=== PATIENT | male | born 1960 | race Caucasian/White ===

== ENCOUNTER 2016-07-05 07:26 | Inpatient (IN) | payer BC ==
[2016-06-26 16:40] LABS: % IMMATURE GRANULYOCYTES 0.4 % (0.0-1.1); ABSOLUTE IMMATURE GRANULOCYTES 0.03 10^3/uL (0.00-0.10); ADD DIFF? NO; ADD MORPH? NO; ADD SCAN? NO; ATYPICAL LYMPHOCYTE FLAG 10 (0-99); FRAGMENT RBC FLAG 0 (0-99); HEMATOCRIT 43.4 % (40.0-51.0); HEMOGLOBIN 15.3 g/dL (13.7-17.5); LEFT SHIFT FLG 0 (0-99); LIPEMIA HEMOLYSIS FLAG 90 (0-99); MEAN CELL HEMOGLOBIN 36.3 pg (27.9-34.1); MEAN CELL HEMOGLOBIN CONCENTR. 35.3 g/dL (32.4-36.7); MEAN CELL VOLUME 103.1 fL (81.5-99.8); MEAN PLATELET VOLUME 9.9 fL (8.7-11.7); PLATELET CLUMPS FLAG 10 (0-99); PLATELET COUNT 125 10^3/uL (150-400); RED BLOOD CELL COUNT 4.21 10^6/uL (4.40-6.38); RED CELL DISTRIBUTION WIDTH 12.3 % (11.5-15.2)
[2016-06-26 17:06] LABS: ANION GAP 9 mEq/L (8-16); CALCIUM 9.5 mg/dL (8.5-10.4); CARBON DIOXIDE 24 mEq/l (22-31); CHLORIDE 106 mEq/L (97-110); CREATININE 0.7 mg/dL (0.7-1.3); GLOMERULAR FILTRATION RATE > 60; GLUCOSE 129 mg/dL (70-100); POTASSIUM 3.9 mEq/L (3.5-5.2); SODIUM 139 mEq/L (134-144)
--- NOTE | 2016-06-26 17:11 | GHP ---
[f rep st] PREOP HISTORY AND PHYSICAL DATE OF ADMISSION: 07/05/2016 PROBLEM: Severe left knee degenerative arthritis with varus deformity. HISTORY OF PRESENT ILLNESS: The patient is a 55-year-old male who will be admitted for a left total knee arthroplasty with Dr. Blum at the [facility] on Tuesday July 05, 2016. 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 Over the past 8 years, the pain has progressively gotten worse. He has tried a cortisone injection into the left knee without any significant improvement. He uses an coal unloader brace on a daily basis in addition to using Advil twice a day. No previous surgery on his left knee. His activities have become extremely limited and finds it difficult to walk and hike because of his pain. Because of the progressive pain and his advanced arthritis of the left knee, he has elected to proceed with a left total knee arthroplasty. PAST MEDICAL HISTORY: Pertinent for type 2 diabetes, hypertension, and arthritis. No history of MRSA infections, PE, DVT, CAD, or metal allergies. CURRENT MEDICATIONS: Lisinopril 10 mg daily and metformin 1000 mg twice a day and tart gaines extract daily. MEDICATION ALLERGIES: No known drug allergies. SOCIAL HISTORY: The patient is . He currently smokes 3-5 cigarettes a day. Occasional alcohol. 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 His activities include hiking and walking. FAMILY HISTORY: Pertinent for type 2 diabetes. PHYSICAL EXAMINATION: GENERAL: He is an otherwise healthy-appearing 55-year- old male. VITALS: Height 6 feet 1 inch tall, weight 230 pounds. BMI 30.3. Blood pressure 148/80, pulse 78. HEENT: Head is normocephalic, atraumatic. Eyes are PERRLA. Conjunctivae and sclerae are clear. Mouth: He has good oral hygiene without any loose teeth. LUNGS: Clear. HEART: Regular rate and rhythm without murmurs, gallops, or rubs. EXTREMITIES: Pertinent findings are limited to the patient's left knee. He has a 5 degree flexion contracture with 120 degrees of flexion. There is a moderate knee joint effusion and varus alignment. There is pseudolaxity noted of his MCL. RECENT DIAGNOSTIC IMAGING: Recent x-rays taken of the patient's left knee shows [id number] arthritis of the medial compartment with varus deformity. There is erosion of the bone of the medial femoral condyle and medial tibial plateau. He has mild degenerative changes of the lateral compartment. There is also a calcification in the soft tissues of the medial aspect of the left proximal leg. IMPRESSION: On admission: 1. Severe left knee advanced medial compartment degenerative arthritis with varus deformity. 2. Treated hypertension. 3. Treated type 2 diabetes. PLAN: The plan will be for the patient to undergo a left total knee arthroplasty with Dr. Blum at the [facility] on Tuesday July 05, 2016. The surgery has been described to the patient including the risks, benefits, and expectations. He understands the risk of nerve injury or blood vessel injury, persistent stiffness of the knee or need for future revision surgery given his young age. All his questions have been answered and he consents to surgery here in the office today. /[id number]/MODL MTDD
[~2016-07-05 07:26] MED LIST: ACETAMINOPHEN 325 MG TAB PO ONE; CEFAZOLIN 2 GM/DEXTR 100 ML IV ONE; CHLORHEXIDINE GLUC HIBICLENS 118 ML BTL TP ONE; DEXAMETHASONE 4 MG/ML VIAL IVP ONE; FAMOTIDINE 20 MG TAB PO ONE; ROPI/epiNEPH/KETOROLAC JOINT COCKTAIL IU ONE; TRANEXAMIC ACID 1,000 MG in NS 100 ML IV ONE
[2016-07-05] MEDS ORDERED: VANCOMYCIN 1 GM VIAL IV ONE ×2 (08:12)
[2016-07-05] MEDS ORDERED: ceFAZolin 1 GM/5 ML SYR ONE (08:13)
[2016-07-05] MEDS ORDERED: fentaNYL 100 MCG/2 ML INJ ONE ×2 (08:15→11:13)
[2016-07-05] MEDS ORDERED: PROPOFOL/EMULSION 500 MG/50 ML BOTTLE IV ONE (08:16)
[2016-07-05] MEDS ORDERED: MIDAZOLAM 2 MG/2 ML VIAL ONE ×2 (08:43→09:27)
[2016-07-05] MEDS ORDERED: LIDOCAINE 1% 5 ML SDV ID PRN (08:50)
[2016-07-05] MEDS ORDERED: LR 1,000 ML IV ONE (08:50)
[2016-07-05] MEDS ORDERED: POVIDONE-IODINE 20 ML in SODIUM CL IRRIG SOLUTION 500 ML IRR ONE (09:00)
[2016-07-05] MEDS ORDERED: ROPIVACAINE HCL 150 MG/30 ML INJ ONE (11:15)
[2016-07-05] MEDS ORDERED: NS 500 ML IV PRN (11:41)
[2016-07-05] MEDS ORDERED: traMADol 50 MG TAB PO PRN (11:41)
[2016-07-05] MEDS ORDERED: TEMAZEPAM 15 MG CAP PO PRN (11:41)
[2016-07-05] MEDS ORDERED: PHARMACY PAIN CONSULT 1 EA MISC PRN (11:41)
[2016-07-05] MEDS ORDERED: LACTULOSE 20 GM/30 ML UDCUP PO PRN (11:41)
[2016-07-05] MEDS ORDERED: KETOROLAC 30 MG/1 ML SDV IVP PRN (11:41)
[2016-07-05] MEDS ORDERED: ONDANSETRON DISINTEGRATING 4 MG TAB PO PRN (11:41)
[2016-07-05] MEDS ORDERED: DIPHENOXYLATE/ATROPINE LOMOTIL 1 TAB PO PRN (11:41)
[2016-07-05] MEDS ORDERED: BISACODYL 10 MG SUPP PR PRN (11:41)
[2016-07-05] MEDS ORDERED: diphenhydrAMINE 25 MG CAP PO PRN (11:41)
[2016-07-05] MEDS ORDERED: CYCLOBENZAPRINE 10 MG TAB PO PRN (11:41)
[2016-07-05] MEDS ORDERED: MAGNESIUM HYDROXIDE 30 ML UDCUP PO PRN (11:41)
[2016-07-05] MEDS ORDERED: PROMETHAZINE HCL 25 MG SUPPR PR PRN (11:41)
[2016-07-05] MEDS ORDERED: POLYETHYLENE GLYCOL 3350 17 GM PKT PO PRN (11:41)
[2016-07-05] MEDS ORDERED: ONDANSETRON 4 MG/2 ML VIAL IVP PRN (11:41)
[2016-07-05] MEDS ORDERED: METOCLOPRAMIDE 10 MG/2 ML VIAL IVP PRN (11:41)
--- NOTE | 2016-07-05 11:41 | POSTOPPROG ---
Post Op Note Date of Operation: 07/05/16 Surgeon: Asif Blum [facility] Lpn: Brodie Anesthesiologist: Kane Anesthesia: IV Sedation, Spinal Post-op Diagnosis: R knee arthritis Procedure: R TKA Inf/Abcess present in the surg proc area at time of surgery?: No EBL: 100-500 (adductor canal block)
[2016-07-05] MEDS ORDERED: ONDANSETRON 4 MG/2 ML VIAL ONE (12:13)
[2016-07-05] MEDS: LR 1,000 ML IV SCH ×2 (12:51→21:05)
[2016-07-05] MEDS: ACETAMINOPHEN 325 MG TAB PO SCH ×3 (12:54→23:46)
--- NOTE | 2016-07-05 12:57 | GOP ---
[f rep st] OPERATIVE REPORT DATE OF OPERATION: 07/05/2016 SURGEON: Asif Blum MD [employer] WORKER: Rai Chase CFA, and Mariola White RN. ANESTHESIA: Combination of Marcaine spinal, IV sedation, and adductor canal block. PREOPERATIVE DIAGNOSIS: Left knee severe degenerative arthritis. POSTOPERATIVE DIAGNOSIS: Left knee severe degenerative arthritis. PROCEDURE PERFORMED: Left total knee arthroplasty, cemented, Batres and Nephew Journey II, posterior stabilized, subvastus approach. FINDINGS: DESCRIPTION OF PROCEDURE: The patient was given 2 g of preoperative IV Ancef within 60 minutes of s urgery. He also received IV tranexamic acid at a dose of 10 mg/kg. He was placed on the operating room table and given spinal anesthesia with Marcaine by Dr. Middleton. He was then placed supine and given IV sedation. A Padron catheter was not used. He wore a ART stocking and SCD on the nonoperati ve leg. His left lower extremity was prepped with ChloraPrep from the upper thigh tourniquet to the tips of the toes. It was draped free using sterile sheets, stockinette, and Ioban plastic adhesive drapes. His left lower leg was wrapped with compressive Coban. The leg was exsanguinated with pippa vation and a 6-inch compressive wrap, and the tourniquet was inflated to 275 mmHg. The World Health Organization time-out was performed to verify the correct patient identity and the correct surgical site and side. The [place] time-out was also performed. The PUSH Wellnessayo leg holding device was sterilely attached to the operating room table and used throughout the procedure to help position the knee. A straight midline incision was made centered on the anderson lla. Subcutaneous tissues were sharply divided, and hemostasis was obtained using electrocautery. A medial subcutaneous flap was developed. I used a subvastus approach. I made an oblique incision through the medial capsule beginning at the midpoint of the patella. This was extended proximally a long the posteromedial margin of the vastus medialis, dissecting the vastus medialis off the postero medial intermuscular septum. This allowed me to mobilize the entire vastus medialis and quadriceps mechanism to sublux the patella laterally. I completed the arthrotomy distally in a medial parapate llar fashion. The medial capsule and periosteum were elevated off the rim of medial tibial plateau all the way around to the posteromedial corner. Because of his severe varus preoperative alignment, I made an aggressive release of his medial collateral ligament. In order to improve exposure, his patella was prepared first. The original thickness of the patella was measured. Peripheral osteophytes were removed. I cut a flat surface on the back of the denny leos. He was sized for a 38 mm resurfacing component. I removed enough bone from the patella such alan t the remaining bone plus the thickness of the patellar component recreated the original thickness o f the patella. The composite thickness of his patella was 25 mm. The intramedullary alignment guide system was used to set up the distal femoral cut. The distal fem ur was cut in 5 degrees of valgus. He had a 15-degree preoperative flexion contracture. I made a + 2 mm cut on the distal femur. The sizing jig was used to determine proper femoral sizing. He was a true size 8 without shifting the jig. The 5-in-1 cutting block was applied, and the anterior and p osterior condylar cuts and chamfer cuts were made. The final jig was used to remove the central por tion of the distal femur to accommodate the posterior stabilized femoral component. I was careful t o achieve proper rotation by referencing off Whitesides line. Each cut was checked for accuracy bef ore and after it was made. His femur was sized for a size 8 posterior stabilized component. The tr ial component was tapped securely into place and was a good fit. Next, the tibia was prepared. The proximal tibial cut was made using the extramedullary alignment g uide system. The cut was made in a few degrees of posterior slope. I was careful to achieve proper varus/valgus alignment and proper rotation. The posterior compartment was cleared of meniscal remn ants. Osteophytes were removed from the back of the femoral condyles. I released the posterior cap jose armando. I checked the flexion and extension gaps, and they were equal and balanced and rectangular. The tibia was sized for a size 7 component. With the trial components in place, I selected a 9 mm p olyethylene posterior stabilized tibial insert. The knee came to full extension and flexed to 130 d egrees without any overstuffing in flexion. His collateral ligaments were stable and balanced in 90 degrees of flexion and full extension. The trial patellar button was applied. Patellar tracking w as checked. It was excellent without any digital pressure. 40 mL of the joint anesthetic cocktail were injected into the posterior capsule, the periarticular s tructures, the quadriceps muscle and tendon areas, and the subcutaneous tissues along the skin edges . He received a 2nd dose of IV tranexamic acid at a dose of 10 mg/kg. The surfaces were prepared f or cementing. They were carefully cleaned with the pulsating lavage irrigation and thoroughly dried . The CarboJet device was used to blow dry the cancellous surfaces. A double batch of high viscosi ty cement with 2 g of powdered vancomycin added was mixed. All 3 components were cemented in place. Excess cement was removed before it hardened. The 9 mm trial tibial insert was re-tried and was the proper thickness. The actual component was in serted and locked into place. The knee was thoroughly irrigated one final time with a dilute Betadi ne solution. The tourniquet was deflated. Total tourniquet time was 70 minutes. The medial capsule was closed first with a couple of interrupted [id number] #2 FiberWire suture s. The capsule and synovium were then closed with multiple [id number]-ki-[id number] 0 PDS sutures, followed by a running #2 barbed Ethicon Stratafix Monoderm suture. The skin was closed with a running 3-0 ba rbed Ethicon Stratafix Monoderm suture. The skin edges were sealed with 1/2-inch Steri-Strips. The wound was covered with Xeroform gauze and flat 4 x 4's, and the knee was wrapped with Kerlix and a 6-inch compressive wrap. A long-leg ART stocking and SCD were applied followed by the cooling devi e. He wore a stocking and SCD on the opposite leg during the procedure. I used a size 8 cemented Batres and Nephew Oxinium posterior stabilized femoral component, size 7 lexa ented tibial base plate, 9 mm posterior stabilized tibial insert, and a 38 mm cemented round all-juan a yethylene resurfacing patellar component. The estimated blood loss following deflation of tournique t was about 300 mL. He bled more than usual. He had a lot of proliferative synovium, and at the be ginning of the procedure, I performed a subtotal synovectomy. I think that contributed to extra ble eding. The sponge and needle count were correct on 2 occasions. He was awakened from anesthesia, t ransferred to his hospital [facility], and taken to PACU in satisfactory condition. There were no recog nized intraoperative complications. In the recovery room, for additional postoperative pain control , Dr. Marcelino Middleton administered an adductor canal block. Rai Chase and Mariola White acted as surgical assistants. Their assistance was a medical necess ity. Copy requested to: Rai Chase [facility] /[id number]/MODL
[2016-07-05] MEDS: ceFAZolin 2 GM/DEXTROSE 100 ML IV SCH ×2 (13:41→21:05)
[2016-07-05] MEDS: oxyCODONE IR 5 MG TAB PO PRN ×3 (13:42→20:22)
[2016-07-05] MEDS: metFORMIN HCL 500 MG TAB PO SCH ×2 (13:43→17:31)
[2016-07-05] MEDS: ASPIRIN 325 MG TAB PO SCH (20:13)
[2016-07-05] MEDS: SENNOSIDES/DOCUSATE SODIUM TAB PO SCH (20:13)
[2016-07-05] MEDS: FAMOTIDINE 20 MG TAB PO SCH (20:13)
[2016-07-06] MEDS: oxyCODONE IR 5 MG TAB PO PRN ×4 (03:21→14:38)
[2016-07-06 05:27] LABS: HEMATOCRIT 30.9 % (40.0-51.0); HEMOGLOBIN 11.2 g/dL (13.7-17.5)
[2016-07-06 05:32] LABS: INR 1.06 (0.83-1.16); PROTIME(PATIENT) 13.7 SEC (12.0-15.0)
[2016-07-06 05:33] LABS: APTT 30.1 SEC (23.0-38.0)
[2016-07-06] MEDS: ACETAMINOPHEN 325 MG TAB PO SCH ×2 (05:33→11:31)
--- NOTE | 2016-07-06 07:07 | SOAPPROG ---
SOAP Progress Note Assessment/Plan: Assessment: Awake and alert. Mod pain. Afebrile. Has been walking in [place]. Sciatic nerve intact. H/H is good. Films look good. Dsg is dry. Plan: Up with PT Home today. 07/06/16 07:05 Objective: Vital Signs Temp Pulse Resp BP Pulse Ox 36.5 C 61 16 118/76 95 07/06/16 04:00 07/06/16 04:00 07/06/16 04:00 07/06/16 04:00 07/06/16 04:00 Laboratory Results 07/06/16 04:58 06/26/16 16:02 07/05/16 07/06/16 07/07/16 05:59 05:59 05:59 Intake Total 6390 Output Total 2350 Balance 4040 PT 13.7 SEC (12.0-15.0) 07/06/16 04:58 INR 1.06 (0.83-1.16) 07/06/16 04:58 ICD10 Worksheet Patient Problems: Problems Problem Status Onset Osteoarthritis of left knee Acute
--- NOTE | 2016-07-06 07:09 | SOAPPROG ---
SOAP Progress Note Assessment/Plan: Assessment: Awake and alert. Mod pain. Afebrile. Has been walking in [place]. Sciatic nerve intact. H/H is good. Films look good. Dsg is dry. Plan: Up with PT Home today. 07/06/16 07:05 07/06/16 07:08 The above note is on the wrong patient. Correct note is below. Objective: Vital Signs Temp Pulse Resp BP Pulse Ox 36.5 C 61 16 118/76 95 07/06/16 04:00 07/06/16 04:00 07/06/16 04:00 07/06/16 04:00 07/06/16 04:00 Laboratory Results 07/06/16 04:58 06/26/16 16:02 07/05/16 07/06/16 07/07/16 05:59 05:59 05:59 Intake Total 6390 Output Total 2350 Balance 4040 PT 13.7 SEC (12.0-15.0) 07/06/16 04:58 INR 1.06 (0.83-1.16) 07/06/16 04:58 ICD10 Worksheet Patient Problems: Problems Problem Status Onset Osteoarthritis of left knee Acute
--- NOTE | 2016-07-06 07:30 | SOAPPROG ---
SOAP Progress Note Assessment/Plan: Assessment: Awake and alert. Mod pain. Afebrile. Has been walking in [place]. Sciatic nerve intact. H/H is good. Films look good. Dsg is dry. Plan: Up with PT Home today. 07/06/16 07:05 07/06/16 07:08 The above note is on the wrong patient. Correct note is below. 07/06/16 07:28 Afebrile. Awake and alert. Moderate pain. He had a lot of wound bleeding yesterday. Dsg was reenforced. Walked in room. H/H is ok. INR and PTT are normal. Platelet count low but same as pre op. I changed his dsg. Not active bleeding today. Moderate swelling. New compression dsg applied. P: PT today. DC later today. I will check him in the office Sunday to check the wound. Objective: Vital Signs Temp Pulse Resp BP Pulse Ox 36.5 C 61 16 118/76 95 07/06/16 04:00 07/06/16 04:00 07/06/16 04:00 07/06/16 04:00 07/06/16 04:00 Laboratory Results 07/06/16 04:58 06/26/16 16:02 07/05/16 07/06/16 07/07/16 05:59 05:59 05:59 Intake Total 6390 Output Total 2350 Balance 4040 PT 13.7 SEC (12.0-15.0) 07/06/16 04:58 INR 1.06 (0.83-1.16) 07/06/16 04:58 ICD10 Worksheet Patient Problems: Problems Problem Status Onset Osteoarthritis of left knee Acute
--- NOTE | 2016-07-06 07:41 | PDIAF ---
- Diagnosis Code Status: Full Code - Medication Management Discharge Medications: Medications to Continue on Transfer Aspirin [Aspirin 325 mg (*)] 325 mg PO DAILY 06/20/16 [Last Taken Unknown] Herbals/Supplements -Info Only 1 ea PO DAILY 06/20/16 [Last Taken Unknown] Acetaminophen [Tylenol 325mg (*)] 650 mg PO BID 07/03/16 [Last Taken Unknown] Acetaminophen [Tylenol 325mg (*)] 650 mg PO Q6HRS #0 tab 07/06/16 [Last Taken Unknown] Aspirin [Aspirin 325 mg (*)] 325 mg PO DAILY #21 tab 07/06/16 [Last Taken Unknown] Ferrous Sulfate [Slow Fe 140 MG (*)] 140 mg PO DAILY #30 tab.er 07/06/16 [Last Taken Unknown] Lisinopril [Zestril 10 mg (*)] 10 mg PO DAILY #0 tab 07/06/16 [Last Taken Unknown] Metformin HCl [Metformin 1000 mg] 1,000 mg PO BID #0 tablet 07/06/16 [Last Taken Unknown] Ondansetron Odt [Zofran Odt 4 mg (*)] 4 mg PO Q4HRS PRN #15 tab 07/06/16 [Last Taken Unknown] oxyCODONE IR [Oxycodone Ir (*)] 5 - 10 mg PO Q3HRS PRN #40 tab 07/06/16 [Last Taken Unknown] traMADol [Ultram 50 mg (*)] 50 mg PO Q6HRS PRN #30 tab 07/06/16 [Last Taken Unknown] Discharge Medications: Refer to the Discharge Home Medication list for PRN reason. - Orders Services needed: Home Care, Physical Therapy Home Care Face to Face: I certify that this patient was under my care and that I had the required [id number] encounter meeting the encounter requirements on the discharge day. My findings support the fact that the patient is homebound as defined in CMS Chapter 7 Medicare Benefits Manual 30.1.1, The condition of the patient is such that there exists a normal inability to leave home and consequently, leaving home would require a considerable and taxing effort. Diet Recommendation: ADA 2000 consistent carb Tirso Stockings Discontinue Date: 1 week Wound Care Instructions: keep dry until Sunday office appt. keep bulky compression dsg in place until Sunday - Follow Up Care Current Providers and Referrals: Bolivar Serrato MD [Primary Care Provider] - Asif Blum MD [Medical Doctor] - 07/20/16 11:30 am
--- NOTE | 2016-07-06 07:53 | GDS ---
[f rep st] DISCHARGE SUMMARY ADMISSION DIAGNOSIS: Left knee severe degenerative arthritis. DISCHARGE DIAGNOSIS: Left knee severe degenerative arthritis. OPERATION PERFORMED: 07/05/2016, a left total knee arthroplasty. POSTOPERATIVE COMPLICATIONS: None. CONDITION ON DISCHARGE: Improved. DESCRIPTION OF HOSPITAL COURSE: The patient was admitted to the hospital on the morning of surgery. His admission CBC was normal except for a platelet count of 125,000. Electrolytes, BUN, and creat inine were normal. The same day under combination of Marcaine, spinal anesthesia, IV sedation, and adductor canal block, he underwent a left total knee arthroplasty. In the first 12 hours after surg abraham, he experienced quite a bit of postoperative wound bleeding. This was treated with a reinforced compressive dressing. He was also treated with multimodal DVT prophylaxis including aspirin and ea rly mobilization. On the 1st postoperative day, his hemoglobin and hematocrit were 11.2 and 30.9. He did not require any transfused blood. His followup platelet count was a 127,000. His pro time, INR, and PTT were normal. He was seen by Physical Therapy and made satisfactory progress with ambul ation. I am only allowing a modest amount of knee range of motion until the bleeding and the wound stabilize. DISPOSITION: The patient is discharged to his home. He will continue aspirin 325 mg p.o. daily for 21 days. He may progress to full weightbearing on the left as tolerated. He will work on gentle r estrella of motion. He has prescriptions for oxycodone and tramadol for pain control. I will see him tamra palma in the office on Sunday, July 10, 2016, to check the wound. He will have home physical therapy. If any problems, he is to call me at the office. /[id number]/MODL
[2016-07-06] MEDS: FAMOTIDINE 20 MG TAB PO SCH (08:55)
[2016-07-06] MEDS: SENNOSIDES/DOCUSATE SODIUM TAB PO SCH (08:55)
[2016-07-06] MEDS: metFORMIN HCL 500 MG TAB PO SCH (08:56)
[2016-07-06] MEDS: ASPIRIN 325 MG TAB PO SCH (08:57)
[2016-07-06] MEDS ORDERED: LISINOPRIL 10 MG TAB PO SCH (09:00)
[2016-07-06] MEDS ORDERED: FERROUS SULFATE 140 MG TAB.ER PO SCH (09:00)
[2016-07-06 12:06] VITALS: BP 136/72; PULSE 66; RESP 12; TEMP 98.4; O2SAT 96
== END 2016-07-06 15:38 | disposition home health service (06) | DRG 470 ==
LOC: EEVIPCON 07:26 → F3N 07:26 → EEVIPCON 09:30 → F3N 12:43
PROVIDERS: ADMIT Orthopaedic Surgery; ATTEND Orthopaedic Surgery
PROC: 0SRB0J9 Replacement of Left Hip Joint with Synthetic Substitute, Cemented, Open Approach (ICD-10-PCS; principal; 2016-07-05 09:30)
DX: M17.12 Unilateral primary osteoarthritis, left knee (principal); E11.9 Type 2 diabetes mellitus without complications; I10 Essential (primary) hypertension; Z72.0 Tobacco use; M21.162 Varus deformity, not elsewhere classified, left knee
CPT/HCPCS: 97116-GP; 97161-GP; 97165-GO; C1713; J0171; J0690; J1100; J1885; J2250; J2405; J2704; J2795; J3010; J3370